=== PATIENT | female | born 1980 | race Caucasian/White ===

== ENCOUNTER → 2018-11-06 | Outpatient (CLI) | payer BC, OTHER | END | disposition home or self-care (01) | LOC: EDSTATUS 08-16 14:00 → CFH 15:52 | PROVIDERS: ATTEND Obstetrics & Gynecology Female Pelvic Medicine and Reconstructive Surgery | DX: D25.1 Intramural leiomyoma of uterus (principal) | CPT/HCPCS: 76830 ==

== ENCOUNTER → 2019-03-24 | Outpatient (CLI) | payer BC | END | disposition home or self-care (01) | LOC: CFH 11:51 | PROVIDERS: ATTEND Internal Medicine Endocrinology, Diabetes & Metabolism | DX: E04.1 Nontoxic single thyroid nodule (principal) | CPT/HCPCS: 76536 ==